=== PATIENT | female | born 1945 | race Caucasian/White ===

== ENCOUNTER → 2016-06-17 | Outpatient (CLI) | payer OTHER | LOC: FIMAGING 15:46 | PROVIDERS: ATTEND Physician Assistant | DX: S73.191A Other sprain of right hip, initial encounter (principal); M25.751 Osteophyte, right hip; M51.36 Other intervertebral disc degeneration, lumbar region; M47.896 Other spondylosis, lumbar region; D25.9 Leiomyoma of uterus, unspecified; Z96.642 Presence of left artificial hip joint ==